=== PATIENT | female | born 2000 | race Caucasian/White ===

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

== ENCOUNTER 2020-02-21 11:07 | Day surgery (SDC) | payer MEDICAID ==
[~2020-02-21] VITALS: Ht 165.1 cm; Wt 79.9 kg
[2020-02-21] MEDS ORDERED: normal saline 1000ml 1,000 ML IV SCH ×2 (11:30→12:00)
[2020-02-21 11:35] VITALS: BP 112/73
[2020-02-21 11:58] LABS: BASOPHILS # (AUTO) 0.1 X10'3 (0-0.2); BASOPHILS % (AUTO) 0.7 % (0-1); EOSINOPHILS # (AUTO) 0.1 X10'3 (0-0.9); EOSINOPHILS % (AUTO) 0.8 % (0-6); HEMATOCRIT 33.1 % (35.0-45.0); LYMPHOCYTES # (AUTO) 1.5 X10'3 (1.1-4.8); LYMPHOCYTES % (AUTO) 12.5 % (21-51); MEAN CORPUSCULAR HGB CONC 33.3 g/dL (33.0-36.5); MEAN CORPUSCULAR VOLUME 84.1 FL (78-98); MEAN PLATELET VOLUME 8.9 FL (7.4-10.4); MONOCYTES # (AUTO) 1.2 X10'3 (0-0.9); MONOCYTES % (AUTO) 10.1 % (2-12); NEUTROPHILS # (AUTO) 8.9 X10'3 (1.8-7.7); NEUTROPHILS % (AUTO) 75.9 % (42-75); PLATELET COUNT 303 X10'3 (140-440); RED BLOOD COUNT 3.93 X10'6 (4.20-5.60); RED CELL DISTRIBUTION WIDTH 24.3 % (11.5-14.5); WHITE BLOOD COUNT 11.7 X10'3 (4.5-11.0)
[2020-02-21 12:30] LABS: TOTAL CELLS COUNTED 100
[2020-02-21] MEDS ORDERED: ALBU18HF2 INH (12:30)
[2020-02-21] MEDS ORDERED: LEUP3.754 IM (12:30)
[2020-02-21] MEDS ORDERED: ONDA4TAB6 PO (12:30)
[2020-02-21] MEDS ORDERED: ALLO100T PO (12:30)
[2020-02-21] MEDS ORDERED: FERR325T28 PO (12:30)
[2020-02-21] MEDS ORDERED: PROC10TA10 PO (12:30)
[2020-02-21 12:31] LABS: ANISOCYTOSIS 3+; MICROCYTOSIS 1+; PLATELET ESTIMATE NORMAL
[2020-02-21] MEDS ORDERED: heparin sodium, porcine/PF 100unit/ml 5ML syringe ONE (12:40)
[2020-02-21] MEDS ORDERED: fentaNYL/PF 50MCG/1 ML 2ML syringe ONE ×2 (12:40→13:28)
[2020-02-21] MEDS ORDERED: LIDOcaine 1%/PF 5ML 10 MG/ML VIAL ONE (12:40)
[2020-02-21] MEDS ORDERED: midazolam 2 mg/2 ml injection ONE ×2 (12:40→13:28)
[2020-02-21 14:08] VITALS: BP 113/63
[2020-02-21 14:23] VITALS: BP 107/71
[2020-02-21 14:30] VITALS: BP 108/59
[2020-02-21 14:38] VITALS: BP 106/60
[2020-02-21 14:47] VITALS: BP 101/64
== END 2020-02-21 15:00 | disposition home or self-care (01) ==
LOC: SSTAY O 11:07
PROVIDERS: ATTEND Radiology Diagnostic Radiology
DX: C81.11 Nodular sclerosis Hodgkin lymphoma, lymph nodes of head, face, and neck (principal); D64.9 Anemia, unspecified; Z79.899 Other long term (current) drug therapy; Z20.828 Contact with and (suspected) exposure to other viral communicable diseases
CPT/HCPCS: 36415; 36561; 76937; 77001; 85025; 87635; 99152; 99153; C1769; C1788; C1894; J1642; J2250; J3010; 85007